=== PATIENT | female | born 1945 | race Caucasian/White ===

== ENCOUNTER → 2017-02-06 | Outpatient (CLI) | payer MEDICARE, BC | END | disposition home or self-care (01) | LOC: YCFC.O 09:53 | PROVIDERS: ATTEND Nurse Practitioner Family | DX: E78.2 Mixed hyperlipidemia (principal); Z13.29 Encounter for screening for other suspected endocrine disorder ==

== ENCOUNTER → 2020-02-16 | Outpatient (CLI) | payer MEDICARE ==
--- NOTE | 2020-02-16 12:10 | RAD ---
EXAM DESCRIPTION: Illness, single view CLINICAL HISTORY: HIP PAIN RIGHT AND LEFT FINDINGS/ IMPRESSION: No fracture of the proximal femora or pelvis Normal contour of the femoral head. No advanced arthrosis or focal osteochondral lesion. No advanced arthrosis of the bilateral sacroiliac joints or pubic symphysis. Degenerative disc and facet disease L4-5 and L5-S1 Electronically signed by: Boby Renae MD 02/16/2020 12:08 PM CDT
--- NOTE | 2020-02-16 12:12 | RAD ---
EXAM DESCRIPTION: Right knee, 4 radiographs CLINICAL HISTORY: PAIN IN RIGHT KNEE FINDINGS/ IMPRESSION: Severe medial femorotibial osteoarthritis with [id number] contact. Scalloped remodeling of the tibia and flattened remodeling of the femoral condyle. Large joint line osteophyte Lateral meniscal chondrocalcinosis with joint line osteophytes. Patellofemoral osteophytes No fracture. Small suprapatellar joint effusion. No intra-articular loose body Electronically signed by: Boby Renae MD 02/16/2020 12:11 PM CDT
--- NOTE | 2020-02-16 12:12 | RAD ---
EXAM DESCRIPTION: Left knee, 4 radiographs CLINICAL HISTORY: PAIN IN LEFT KNEE FINDINGS/ IMPRESSION: Severe medial femorotibial osteoarthritis with complete loss of joint space, [id number] contact and scalloped remodeling of the tibia and flattened remodeling of the femoral condyle. Meniscal chondrocalcinosis, laterally subluxed. Joint line osteophytes. Lateral meniscal chondrocalcinosis and joint line osteophytes. Patellofemoral joint line osteophytes No fracture. Moderate suprapatellar joint effusion Electronically signed by: Boby Renae MD 02/16/2020 12:10 PM CDT
== END ==
LOC: RAD 08:06
PROVIDERS: ATTEND Orthopaedic Surgery
DX: M17.0 Bilateral primary osteoarthritis of knee (principal); M23.302 Other meniscus derangements, unspecified lateral meniscus, unspecified knee; M25.461 Effusion, right knee; M25.462 Effusion, left knee; M11.261 Other chondrocalcinosis, right knee; M11.262 Other chondrocalcinosis, left knee; M25.761 Osteophyte, right knee; M25.762 Osteophyte, left knee; M89.8X6 Other specified disorders of bone, lower leg; M51.36 Other intervertebral disc degeneration, lumbar region; M51.37 Other intervertebral disc degeneration, lumbosacral region; M25.551 Pain in right hip; M25.552 Pain in left hip

== ENCOUNTER → 2020-03-29 | Outpatient (CLI) | payer MEDICARE | LOC: LAB.O 08:02 | PROVIDERS: ATTEND Orthopaedic Surgery | DX: Z01.818 Encounter for other preprocedural examination (principal) ==

== ENCOUNTER → 2020-04-28 | Day surgery (SDC) | payer MEDICARE | LOC: AMB 05:18 | PROVIDERS: ATTEND Orthopaedic Surgery | DX: M25.562 Pain in left knee (principal); M25.561 Pain in right knee; Z53.9 Procedure and treatment not carried out, unspecified reason ==

== ENCOUNTER → 2020-08-30 | Outpatient (CLI) | payer MEDICARE | LOC: LAB.O 07:20 | PROVIDERS: ATTEND Orthopaedic Surgery | DX: Z01.818 Encounter for other preprocedural examination (principal) ==